=== PATIENT | female | born 1965 | race Caucasian/White ===

== ENCOUNTER 2017-06-15 13:26 | Outpatient (CLI) | payer BC | END 2017-06-15 13:27 | disposition home or self-care (01) | LOC: BICRAD 13:26 | PROVIDERS: ATTEND Family Medicine | DX: J45.909 Unspecified asthma, uncomplicated (principal) | CPT/HCPCS: 71046 ==

== ENCOUNTER 2017-07-26 09:20 | Emergency (ER) | payer BC ==
[2017-07-26] MEDS ORDERED: Famotidine 20 MG TAB ONE (11:10)
== END 2017-07-26 12:13 | disposition home or self-care (01) ==
LOC: ERS 09:20
DX: T78.40XA Allergy, unspecified, initial encounter (principal); I10 Essential (primary) hypertension; E66.9 Obesity, unspecified; F41.9 Anxiety disorder, unspecified; F32.9 Major depressive disorder, single episode, unspecified; Z79.899 Other long term (current) drug therapy
CPT/HCPCS: 99284

== ENCOUNTER 2017-12-12 15:19 | Emergency (ER) | payer BC ==
[~2017-12-12 15:19] MED LIST: Iopamidol 370 76% 50 ML VIAL FS ONE
[2017-12-12 16:11] LABS: #Eosinphils 2.4 thou/uL (0.0-0.7); #Lymphocytes 2.5 thou/uL (1.20-3.40); #Neutrophils 7.5 thou/uL (1.40-6.50); %Basophils 0.3 % (0.0-1.0); %Eosinophils 18.2 % (0.0-10.0); %Lymphocytes 18.4 % (21.0-51.0); %Monocytes 7.1 % (0.0-10.0); Hemoglobin 15.6 g/dL (12.0-16.0); Mean Corpuscular HGB CONC 34.9 g/dL (32.0-36.0); Mean Corpuscular Hemoglobin 34.4 pg (27.0-31.0); Mean Corpuscular Volume 98.6 fL (78.0-98.0); Platelet Count 237 thou/uL (130-400); RBC Distribution Width 12.5 % (11.5-14.5); Red Blood Cell (RBC) Count 4.53 mill/uL (4.20-5.40); White Blood Cell (WBC) Count 13.3 thou/uL (4.8-10.8)
[2017-12-12 16:31] LABS: ALT (SGPT) 27 U/L (8-55); AST (SGOT) 26 U/L (5-34); Albumin 4.5 g/dL (3.5-5.0); Alkaline Phosphatase 162 U/L (40-150); Anion Gap 18 mmol/L (10-20); BUN (Urea Nitrogen) 21 mg/dL (9.8-20.1); Bilirubin, Total 0.3 mg/dL (0.2-1.2); Calc. Creatinine Clearance 0 mL/min (70-130); Calcium 9.6 mg/dL (7.8-10.44); Carbon Dioxide 19 mmol/L (22-29); Chloride 101 mmol/L (98-107); Estimated GFR-MDRD 28; Globulin 3.1 g/dL (2.4-3.5); Glucose 103 mg/dL (70-105); Potassium 3.4 mmol/L (3.5-5.1); Protein, Total 7.6 g/dL (6.0-8.3); Sodium 135 mmol/L (136-145)
[2017-12-12 18:19] LABS: Bilirubin Large (Negative); Blood, Urine Negative (Negative); Clarity TURBID (Clear); Glucose, Urine (Dipstick) Negative (Negative); Leukocyte Small (Negative); Nitrite Negative (Negative); Protein, Urine (Dipstick) 30 mg/dL (Neg-Trace); Specific Gravity, Urine 1.029 (1.002-1.036)
[2017-12-12 18:21] LABS: Pathc Cast-AUWi Flag 1.45 (0-2.49); Squamous Epithelial 21-50 HPF (0-3)
[2017-12-12 18:21] LABS: Magnesium 2.1 mg/dL (1.6-2.6)
[2017-12-12 18:38] LABS: Bacteria/HPF 1+ HPF (None Seen); Hyaline Casts/LPF 0-3 HYALINE CAST LPF (0-3 Hyaline); RBC/HPF None Seen HPF (0-3); Renal Epithelial None Seen HPF (0-3); Transitional Epithelial NONE SEEN HPF (0-3)
--- NOTE | 2017-12-12 20:49 | CT ---
CT ABDOMEN AND PELVIS WITHOUT IV CONTRAST: HISTORY: A 52-year-old female with abdominal pain. COMPARISON: Prior CTA of the abdomen and pelvis dated 08/17/2016. FINDINGS: The lung bases are clear. There is post surgical change of gastroplasty. The gallbladder is surgica lly absent. There is a slightly hypodense 1.7 cm lesion within segment 6 of the right hepatic lobe that is incomp letely characterized. This is seen as an enhancing lesion from the comparison in 2017. There is a s table small right renal cyst. There is bilateral nephrolithiasis. No ureteral calculus or hydroneph rosis is demonstrated. The bladder, rectum, and perirectal soft tissues are unremarkable. There is scattered diverticula involving the colon without evidence of active diverticulitis. There are fluid levels present within the ascending colon, transverse colon, and splenic flexure, which are nonspeci fic. The uterus and adnexa are surgically absent. No definite acute osseous abnormality is evident. There is scattered degenerative and osteoarthritic change. IMPRESSION: 1. Fluid density in the colon can be seen with diarrheal states and/or mild colitis. 2. Hyperdense lesion involving the right hepatic lobe. This was an arterially enhancing lesion seen on the CT examination from 2017. Recommendations per the 2017 results from [place]. An MRI of the ab domen, utilizing hemangioma protocol, is recommended. 3. Stable bilateral nephrolithiasis and right renal cyst. 4. Other chronic findings as above. POS: [facility]
== END 2017-12-12 20:22 | disposition home or self-care (01) ==
LOC: ERS 15:19
DX: K52.9 Noninfective gastroenteritis and colitis, unspecified (principal); I10 Essential (primary) hypertension; F32.9 Major depressive disorder, single episode, unspecified; Z79.899 Other long term (current) drug therapy
CPT/HCPCS: 36415; 74176; 80053; 81003; 81015; 83690; 83735; 85025; 87324; 87449; 96361; 96374; 96375

== ENCOUNTER 2017-12-14 10:20 | Inpatient (IN) | payer BC ==
[2017-12-14] MEDS ORDERED: Lorazepam 2 MG/ML VIAL ONE (10:54)
[2017-12-14 10:57] LABS: Bilirubin Small (Negative); Blood, Urine Negative (Negative); Clarity CLOUDY (Clear); Glucose, Urine (Dipstick) Negative (Negative); Leukocyte Small (Negative); Nitrite Negative (Negative); Protein, Urine (Dipstick) Negative (Neg-Trace); Specific Gravity, Urine 1.025 (1.002-1.036); Urobilinogen 0.2 mg/dL (0.2-1.0)
[2017-12-14 11:01] LABS: Bacteria/HPF 1+ HPF (None Seen); Hyaline Casts/LPF 4-6 HYALINE CAST LPF (0-3 Hyaline); Pathc Cast-AUWi Flag 1.16 (0-2.49); RBC/HPF 0-3 HPF (0-3); Squamous Epithelial 21-50 HPF (0-3); WBC/HPF 0-3 HPF (0-3)
[2017-12-14 11:08] LABS: Hemoglobin 14.7 g/dL (12.0-16.0); Mean Corpuscular HGB CONC 34.2 g/dL (32.0-36.0); Mean Corpuscular Hemoglobin 33.8 pg (27.0-31.0); Mean Corpuscular Volume 98.9 fL (78.0-98.0); Mean Platelet Volume 8.2 fL (7.4-10.4); Platelet Count 216 thou/uL (130-400); RBC Distribution Width 12.3 % (11.5-14.5); Red Blood Cell (RBC) Count 4.33 mill/uL (4.20-5.40); White Blood Cell (WBC) Count 14.8 thou/uL (4.8-10.8)
[2017-12-14] MEDS ORDERED: Ondansetron ODT 4 MG TAB ONE (11:09)
[2017-12-14 11:12] LABS: ALT (SGPT) 22 U/L (8-55); AST (SGOT) 19 U/L (5-34); Albumin 4.5 g/dL (3.5-5.0); Alkaline Phosphatase 167 U/L (40-150); Anion Gap 14 mmol/L (10-20); BUN (Urea Nitrogen) 11 mg/dL (9.8-20.1); Bilirubin, Total 0.3 mg/dL (0.2-1.2); Calc. Creatinine Clearance 0 mL/min (70-130); Calcium 9.8 mg/dL (7.8-10.44); Carbon Dioxide 23 mmol/L (22-29); Chloride 104 mmol/L (98-107); Estimated GFR-MDRD 61; Globulin 2.9 g/dL (2.4-3.5); Glucose 105 mg/dL (70-105); Lipase 15 U/L (8-78); Potassium 3.6 mmol/L (3.5-5.1); Protein, Total 7.4 g/dL (6.0-8.3); Sodium 137 mmol/L (136-145)
[2017-12-14 11:22] LABS: Band 4 % (5-11); Eosinophils 27 % (0-10); Lymphocytes 16 % (21-51); MDiff Complete? YES; Monocytes 4 % (0-10); Neutrophil 42 % (42-75); RBC Morphology Normal; Reactive Lymphocytes 7 % (0-10)
--- NOTE | 2017-12-14 12:07 | CT ---
CT ABDOMEN WITH CONTRAST CT PELVIS WITH CONTRAST: DATE: 12/14/17 HISTORY: 52-year-old female with severe abdominal pain. Diarrhea. COMPARISON: 12/12/17. TECHNIQUE: IV injection of iodinated contrast media: Administered. Oral contrast media: Not administered. FINDINGS: 3 mm calculus at right renal lower pole calyx. 1 or 2 mm punctate calculus at left renal mid-lower po le. Otherwise, normal kidneys. The 1.7 cm mildly hyperdense lesion in hepatic segment 6 of right lobe of the liver on the noncontrast scan of 12/12/17 is not visible on this single phase contrast enhanc ed CT. Hepatic attenuation is minimally decreased diffusely, suggestive of mildly fatty liver. No por rowena vein thrombosis. Cholecystectomy clips in the gallbladder fossa. No discrete hepatic lesion ident ified. Suture line around narrowed gastric channel. A portion of the stomach, including the suture li ne, herniates superior to the diaphragm, a distance of approximately 5 cm, similar to previous CT. Shital ng bases are grossly clear. The abdominal aorta, appendix, adrenals, pancreas, and spleen are normal. No ascites or pneumoperitoneum. No colonic diverticulitis. No small bowel dilation. Absent uterus. IMPRESSION: 1. Mild bilateral nephrolithiasis. 2. Probable mild hepatic steatosis. 3. Status post cholecystectomy, vertical sleeve gastrectomy, and hysterectomy. 4. Small lesion in right lobe of liver demonstrated on the CT of 12/12/17 is not visible on the curr ent CT, due to this particular lesion's enhancement pattern during this particular phase of scanning. As previously recommended, multiphase MRI of the abdomen, with and without contrast, hemangioma prot ocol, is still recommended. 5. Small hiatal hernia. 6. Otherwise no acute findings. JNR POS: [facility]
[2017-12-14] MEDS ORDERED: ISOVUE-370 76%-LOCM 1 ML ONE (15:12)
[2017-12-14 15:30] VITALS: BMI 46.3
[2017-12-14] MEDS ORDERED: Ondansetron ODT 4 MG TAB SL PRN (15:48)
[2017-12-14] MEDS ORDERED: Ondansetron HCl/PF 4 MG/2 ML Vial IVP PRN (15:48)
[2017-12-14] MEDS ORDERED: Sodium Chloride 0.9% 1,000 ML IV SCH ×2 (16:00→16:43)
[2017-12-14 16:04] LABS: Lactic Acid 0.8 mmol/L (0.5-2.2)
[2017-12-14] MEDS ORDERED: Morphine 4 MG/ML Carpuject SLOW IVP PRN (16:43)
--- NOTE | 2017-12-14 20:05 | CON ---
DATE OF CONSULTATION: 12/14/2017 CHIEF COMPLAINT: Abdominal pain. HISTORY OF PRESENT ILLNESS: This is a 52-year-old female who presents with severe abdominal pain in the periumbilical area. This was associated with diarrhea since last Tuesday. She was placed on anti biotics at that time by her primary care physician. Pain is worse, associated with nausea. The diar woody is not improved. She presents after being admitted through the emergency room to the medical service. She has a histo ry of laparoscopic gastric sleeve in 2012. She followed up with me for the first year, has not seen me since. She denies chronic nausea, vomiting, diarrhea. She denies chronic abdominal pain, no hist ory of acid reflux, currently or in the past. PAST MEDICAL HISTORY: Hypertension, migraines. PAST SURGICAL HISTORY: Gastric sleeve, tonsillectomy, tubal ligation. MEDICINES TAKEN DAILY: See list. SOCIAL HISTORY: Occasional alcohol. No smoking, other drugs. REVIEW OF SYSTEMS: Ten system review of systems otherwise negative unless described above. PHYSICAL EXAMINATION: VITAL SIGNS: Blood pressure is 118/77, pulse 81, respirations 20. She is afebrile. HEENT: Sclerae are anicteric. Oropharynx clear. NECK: No lymphadenopathy. CHEST: Clear. HEART: Regular rate and rhythm. ABDOMEN: Soft, it is tender, mildly in the epigastric area without guarding or rebound. No abdomina l hernias. EXTREMITIES: No ischemia or edema to extremities. LABORATORY AND X-RAY FINDINGS: Liver function tests normal except for alkaline phosphatase which is elevated at 167. Her lipase is normal. Her hemoglobin is 14. Her platelet count is 216. She has 4 bands. She has a high eosinophil count. CT scan of the abdomen performed today shows no significan t acute findings. ASSESSMENT: 1. Diarrheal illness of uncertain etiology. 2. Small recurrent hiatal hernia. PLAN: Her hiatal hernia is not causing her any symptoms. She does not have reflux. I question whet her this is some infectious source of diarrhea. No significant colitis on the CT, but no oral contra st was given either. Supportive care. Dr. Nicole has agreed to see her for his thoughts. No plans for surgery for now.
[2017-12-14] MEDS: D5 0.9% NS w/ 20 mEq KCl 1,000 ML IV SCH (20:51)
[2017-12-14] MEDS: Famotidine/PF 20 mg/2ml Vial SLOW IVP SCH (20:51)
[2017-12-14] MEDS: metroNIDAZOLE 500 MG TAB PO SCH (20:52)
[2017-12-14] MEDS: Ondansetron HCl/PF 4 MG/2 ML Vial IVP PRN (21:02)
[2017-12-14] MEDS: Acetaminophen 325 MG TAB PO PRN (21:33)
--- NOTE | 2017-12-15 03:23 | CON ---
DATE OF CONSULTATION: 12/14/2017 REASON FOR CONSULTATION: Diarrhea for over a week. HISTORY OF PRESENT ILLNESS: Ms. Ansari is a pleasant 52-year-old who states she began to have dave rrhea a week ago on Tuesday. By Tuesday, she was not getting better, so she went to go to see Dr. Devon terrell who started empirically on some Bactrim and give her some Levsin for cramping. Over the week d, she did not really get much better, was not worse, but on Tuesday, she is having bowel movements ab out every 30-45 minutes with severe cramping. On Tuesday, she felt weak, throw up once, then a presy ncopal episode, went to the emergency room. There, her white count 13,000, hemoglobin 15.6, platelet count 263. Sodium 135, potassium 3.4, BUN and creatinine 21 and 1.91, alkaline phosphatase is 162. Other liver enzymes are normal. She has stool for C. diff that was negative. She was released home with some different medications. Reviewing those records, it seems that she was given Carafate, Fla gyl, and some Zofran after be given fluids. She also had a CAT scan in the emergency room on the that showed some fluid in the colon, lesion in the liver, which has been seen also in 2017, also cher e kidney stones. This patient was not getting better with that. She tried to go to work today. Abo ut 9:45, she does have some nausea and vomiting when came back to the emergency room. She was rescan elvia the stomach, contrast showed some fatty liver. Sleeve gastrectomy, hysterectomy, cholecystectomy . No other acute findings. I reviewed those films. PAST MEDICAL HISTORY: She has diabetes, she has some reflux, hypertension. PAST SURGICAL HISTORY: Notable for sleeve gastrectomy, several years ago. She had a screening colon oscopy and EGD with Dr. Bravo in 2016, tonsillectomy, tubal ligation, and hysterectomy. ALLERGIES: None known. SOCIAL HISTORY: The patient drinks a couple of drinks per day. Does not use drugs, does not smoke. She has not been drinking any alcohol recently. MEDICATIONS: Valsartan, [place] Thyroid, bupropion, Carafate, Flagyl, Zofran. She is on Bactrim rece ntly. Now, she is admitted to the hospital for further treatment. REVIEW OF SYSTEMS: No dysphagia, odynophagia, melena, hematochezia, hematemesis. She states she has had no evidence of GI problems in the past on a regular basis. She does note that she ate a bagged salad that Tuesday where she has got sick and got sick immediately after that stools have been for the most part watery without blood. There has been some cramping and lot of gas. She has had previous celiac testing in 2016 with tissue transglutaminase, total IgA both of which were negative. PRESENT MEDICATIONS: Here, Tylenol, Pepcid, morphine, Zofran, and normal saline. PHYSICAL EXAMINATION: VITAL SIGNS: Temperature is 97.9, pulse 81, blood pressure 118/77. GENERAL: She is resting comfortably in bed. She has in no distress. HEENT: Oropharynx without lesions. NECK: Supple without adenopathy. LUNGS: Clear. HEART: Rate and rhythm regular without murmurs, rubs or gallops. ABDOMEN: Soft with mild tenderness. There is no rebound. There is no guarding. Bowel sounds are p ositive. There is no rash. EXTREMITIES: No clubbing, cyanosis, or edema. LABORATORY AND X-RAY FINDINGS: As per HPI, white count today 14.8, hemoglobin 14.7, platelet count 2 16, 27% eosinophils on manual diff, neutrophils 42%. Urine has trace ketones. Electrolytes normal w ith BUN and creatinine 11 and 0.97, alkaline phosphatase 167. AST, ALT normal, lipase normal. ASSESSMENT: Ms. Ansari is a 52-year-old female with gastroenteritis, which started about 10 days ago, started after eating bagged salad. She thinks no else got sick at home. She is on no antibioti cs. She was given some Bactrim about 6 days ago that did not help. She was given some Flagyl in the ER yesterday, but she really did not take much of that. She had a stool that was negative for Clost ridium difficile. She does have significantly eosinophilia. Differential diagnosis include parasite s suggests Giardia, Cyclospora, Cryptosporidium. Rotavirus is always possible one would not expect e osinophils having a drug reaction. She has had no other medicines, there is no rashes and this was to the Bactrim. Unfortunately, CBC from 6th does show a little bit elevated eosinophils, but th ere is no manual differential done. RECOMMENDATIONS: I will start some Cipro and Flagyl along first get some stool studies. We will nee d to repeat C. diff that has been negative. We will follow along with you. Would recommend clear li quid diet at this time and hydration, as she is not get better for a couple of days, we can empirical ly treat her for Cyclospora that is going to take about a week to get that result back.
[2017-12-15] MEDS: D5 0.9% NS w/ 20 mEq KCl 1,000 ML IV SCH ×3 (04:00→20:02)
[2017-12-15 06:18] LABS: ALT (SGPT) 18 U/L (8-55); AST (SGOT) 15 U/L (5-34); Albumin 3.7 g/dL (3.5-5.0); Alkaline Phosphatase 137 U/L (40-150); Anion Gap 11 mmol/L (10-20); BUN (Urea Nitrogen) 8 mg/dL (9.8-20.1); Bilirubin, Total 0.2 mg/dL (0.2-1.2); Calc. Creatinine Clearance 156 mL/min (70-130); Calcium 8.4 mg/dL (7.8-10.44); Carbon Dioxide 25 mmol/L (22-29); Chloride 109 mmol/L (98-107); Estimated GFR-MDRD 81; Globulin 2.3 g/dL (2.4-3.5); Glucose 113 mg/dL (70-105); Potassium 3.8 mmol/L (3.5-5.1); Sodium 141 mmol/L (136-145)
[2017-12-15 06:53] LABS: Band 2 % (5-11); Eosinophils 36 % (0-10); Hemoglobin 13.2 g/dL (12.0-16.0); Lymphocytes 24 % (21-51); MDiff Complete? YES; Mean Corpuscular Hemoglobin 35.3 pg (27.0-31.0); Mean Platelet Volume 8.6 fL (7.4-10.4); Monocytes 3 % (0-10); Neutrophil 35 % (42-75); PLT Morphology Comment Appears Adequate; Platelet Count 147 thou/uL (130-400); RBC Distribution Width 12.4 % (11.5-14.5); Red Blood Cell (RBC) Count 3.74 mill/uL (4.20-5.40); White Blood Cell (WBC) Count 12.5 thou/uL (4.8-10.8)
[2017-12-15] MEDS: Acetaminophen 325 MG TAB PO PRN (07:05)
[2017-12-15] MEDS: metroNIDAZOLE 500 MG TAB PO SCH ×3 (07:50→21:02)
[2017-12-15] MEDS: Famotidine/PF 20 mg/2ml Vial SLOW IVP SCH (07:51)
[2017-12-15] MEDS: Ondansetron HCl/PF 4 MG/2 ML Vial IVP PRN ×3 (07:55→21:20)
[2017-12-15] MEDS: Ondansetron ODT 4 MG TAB PO PRN ×2 (10:12→16:08)
--- NOTE | 2017-12-15 13:44 | PDOC.PN ---
- Subjective Encounter Start Date: 12/15/17 Encounter Start Time: 11:15 Still with abdominal pain. seen by Dr Nicole last evening, Cipro and flagyl started, clear diet, stool studies, and possible colonoscopy today. Dr Bravo to see today as he did her endoscopy a year ago No F/c, +N/V, + diarrhea. no bleeding all systems reviewed and neg for all except as above - Objective Resuscitation Status: Resuscitation Status FULL:Full Resuscitation MAR Reviewed: Yes Vital Signs & Weight: Vital Signs (12 hours) Temp Pulse Resp BP Pulse Ox 12/15/17 08:05 98.1 F 80 16 12/15/17 07:32 98.1 F 80 16 116/74 97 12/15/17 05:15 98.3 F 82 18 123/63 99 Weight Weight 245 lb I&O: 12/14/17 12/15/17 12/16/17 06:59 06:59 06:59 Intake Total 1600 Balance 1600 Result Diagrams: 12/15/17 05:15 12/15/17 05:15 Radiology Reviewed by me: Yes Phys Exam - Physical Examination Constitutional: NAD HEENT: PERRLA, moist MMs, sclera anicteric, oral pharynx no lesions Neck: no nodes, no JVD, supple, full ROM Respiratory: no wheezing, no rales, no rhonchi, clear to auscultation bilateral Cardiovascular: RRR, no significant murmur Gastrointestinal: soft, no distention, positive bowel sounds slightly tender, no rebound, no guarding Musculoskeletal: no edema, pulses present Neurological: non-focal, normal sensation, moves all 4 limbs Lymphatic: no nodes Psychiatric: normal affect, A&O x 3 Skin: no rash, normal turgor, cap refill <2 seconds Dx/Plan (1) Colitis Code(s): K52.9 - NONINFECTIVE GASTROENTERITIS AND COLITIS, UNSPECIFIED Status : Acute (2) Abdominal pain Code(s): R10.9 - UNSPECIFIED ABDOMINAL PAIN Status: Acute (3) Hiatal hernia Code(s): K44.9 - DIAPHRAGMATIC HERNIA WITHOUT OBSTRUCTION OR GANGRENE Status: Chronic (4) Dyslipidemia Code(s): E78.5 - HYPERLIPIDEMIA, UNSPECIFIED Status: Chronic (5) History of anxiety Code(s): Z86.59 - PERSONAL HISTORY OF OTHER MENTAL AND BEHAVIORAL DISORDERS Status: Chronic (6) History of depression Code(s): Z86.59 - PERSONAL HISTORY OF OTHER MENTAL AND BEHAVIORAL DISORDERS Status: Chronic (7) HTN (hypertension) Code(s): I10 - ESSENTIAL (PRIMARY) HYPERTENSION Status: Chronic Qualifiers: Hypertension type: essential hypertension Qualified Code(s): I10 - Essential (primary) hypertension (8) Morbid obesity Code(s): E66.01 - MORBID (SEVERE) OBESITY DUE TO EXCESS CALORIES Status: Chronic - Plan cont current plan of care, plan discussed w/ family, continue antibiotics, out of bed/ambulate * .
--- NOTE | 2017-12-15 14:34 | PRG ---
DATE OF SERVICE: 12/15/2017 SUBJECTIVE: Ms. Ansari says she feels about the same today as yesterday. She has some generalize d abdominal pain, which is moderate in severity. She has been tolerating her clear liquid diet, but she has already had 5 loose bowel movements today. She has been afebrile. OBJECTIVE: VITAL SIGNS: Temperature 98.1, pulse 80, blood pressure 116/64, 97% oxygen saturation on room air. GENERAL: No acute distress. HEART: Regular rate and rhythm. LUNGS: Clear to auscultation bilaterally. ABDOMEN: Bowel sounds are present, soft, some diffuse tenderness to palpation throughout, but no gua rding or rebound tenderness. EXTREMITIES: No peripheral edema. LABORATORY STUDIES: WBC is down to 12.5, hemoglobin 13.2, platelets 147. Sodium 141, potassium 3.8, BUN 8, creatinine 0.75, lipase normal at 10. LFTs all normal with total bilirubin 0.2, alkaline gerardo sphatase 137, AST 15, ALT 18. Stool assays for Campylobacter and Shiga toxin are negative. Stool cu lture shows normal enteric natacha, but further incubation is in process. Rotavirus is negative. Rapi d parasite screen including Giardia and cryptosporidium is negative. Cyclospora, norovirus and O&P a re all pending. Note that prior sample from 12/12/2017 showed negative C. difficile antigen and toxi n. ASSESSMENT AND PLAN: 1. Acute gastroenteritis, symptoms from the past 10-11 days. 2. Generalized abdominal pain. My impression remains consistent with an acute gastroenteritis. Channing e of the stool studies are still pending. I advised the patient that even if stool studies end up be ing unrevealing, clinically this appears to represent. Agree with the empiric antibiotics and clear liquid diet for now. If the patient is feeling any better tomorrow morning, diet could be advanced t o full liquids and see how she does. We would expect gradual symptom improvement over the next few d ays. No plan for any endoscopic examination at this time. Please call any time with questions or concerns.
--- NOTE | 2017-12-15 14:39 | HP ---
DATE OF ADMISSION: 12/14/2017 PRIMARY CARE PHYSICIAN: Rosie Manuel M.D. PRIMARY SURGEON: Dr. Orlando Rodriguez. TIME OF SERVICE: 1600. CHIEF COMPLAINT: Abdominal pain and diarrhea. HISTORY OF PRESENT ILLNESS: Ms. Ansari is a 52-year-old female with a history of vertical sleeve gastrectomy some [address] Rodriguez, hysterectomy, and gallbladder removal who has had 7 days of diarrhea prior to presentation. Today, she woke up around 0300 with abdominal pain and passing s ome "slimy gas." She continued to have excruciating abdominal pain and has been intractable. She pr esented to the emergency department for evaluation and the workup was largely unremarkable. CT scan today was unchanged. We were subsequently called for admission. I did not accept the patient, recom mended a touch base with Dr. Rodriguez. Nevertheless, the patient was admitted to my service and showe d up on the floor 4 hours later. The patient continues to have excruciating abdominal pain, said it is worse when letting go and not p ressing, it is constant in nature. No fevers or chills. She did state she ate some funny tasting sa lad about a week ago. No other current complaints. PAST MEDICAL HISTORY: 1. Hypertension, essential. 2. Obesity. 3. Status post gastric sleeve. 4. Anxiety and depression. PAST SURGICAL HISTORY: 1. Includes gastric sleeve about 5 years ago. 2. Cholecystectomy. 3. Hysterectomy. 4. Tonsillectomy. 5. Bilateral tubal ligation remotely. SOCIAL HISTORY: Significant for daily wine consumption. No IV drug use and no tobacco history. REVIEW OF SYSTEMS: All systems reviewed and negative except as per HPI. PHYSICAL EXAMINATION: VITAL SIGNS: Temperature on arrival to floor 97.9, pulse 81, blood pressure 118/77, respiratory rate 20, O2 sat 98% on room air. GENERAL: She is awake. She is alert. She is oriented x3. She is a well-developed, well-nourished, obese white female, appears to be in no acute distress, but looks like she does not feel well. HEENT: Normocephalic, atraumatic. Pupils equal, round, react to light bilaterally. Mucous membrane s moist. No visible lesion. No thrush. NECK: Supple. She has no lymphadenopathy, JVD, or thyromegaly. He has normal carotid upstroke. I do not appreciate bruits. LUNGS: Clear to auscultation bilaterally. CARDIOVASCULAR: Normal S1 and S2. No S3 or S4. No audible murmurs. ABDOMEN: Soft. It is diffusely tender, but mainly in the epigastric area. She has a slight rebound . There is no rigidity, no guarding. She has hypoactive bowel sounds present in all 4 quadrants. S he has no ecchymosis or skin discoloration. EXTREMITIES: No cyanosis or clubbing. Trace pedal edema. Skin is warm, moist, and well perfused. She had no rashes or lesions. She has 2+ dorsalis pedis and posterior tibial pulses. MUSCULOSKELETAL: Normal to inspection. Large joints appear normal. There is no evidence of inflamm ation or palpable effusions. NEUROLOGIC: Cranial nerves II-XII grossly intact. She has no focal neurologic deficits. LABORATORY DATA: White blood cell count 14.8, hemoglobin 14.7, hematocrit of 42.8, and platelet coun t is 216,000. She has 4% bands and 42% lymphocytes. She has 27% eosinophilia. CMP is a normal limi t except for an alkaline phosphatase barely elevated at 167. Lactic acid was initially 2.2 with a re peat of 0.8 and lipase was normal. Urinalysis was grossly contaminated with 21-50 epithelial cells. RADIOGRAPHIC STUDIES: She had a CT scan of the abdomen and pelvis with comparison 2 days prior. It showed IV contrast, but no oral contrast, showed mild bilateral nephrolithiasis, probable mild hepati c steatosis and status post cholecystectomy grossly gastrectomy and hysterectomy, small lesion in the right lobe of the liver, seen 2 days ago, is not present today. I recommended a multiphase MRI when able to get a better look for hemangioma protocol. Patient also had a small hiatal hernia. No othe r acute findings. ASSESSMENT AND PLAN: 1. Abdominal pain. 2. Diarrhea times a week. 3. Eosinophilia. 4. Obesity, status post gastric sleeve remotely with hiatal hernia. We will place patient on n.p.o. status. We will use IV pain medicines and not antiemetics. We will ask GI to evaluate and notify Dr. Rodriguez of admission. Certainly could be an infectious colitis. W e will hold off on antibiotics until GI had the opportunity to see. I will not order any further sto ol studies. Place the patient in inpatient status and started IV fluids at 125 an hour.
[2017-12-15] MEDS: Famotidine 20 MG TAB PO SCH (20:03)
[2017-12-15] MEDS ORDERED: Promethazine HCl 25 MG in Sodium Chloride 0.9% 50 ML IVPB SCH (23:15)
[2017-12-16] MEDS: D5 0.9% NS w/ 20 mEq KCl 1,000 ML IV SCH ×3 (01:30→20:35)
[2017-12-16 05:09] LABS: ALT (SGPT) 14 U/L (8-55); AST (SGOT) 13 U/L (5-34); Albumin 3.4 g/dL (3.5-5.0); Alkaline Phosphatase 113 U/L (40-150); Anion Gap 7 mmol/L (10-20); BUN (Urea Nitrogen) 5 mg/dL (9.8-20.1); Bilirubin, Total Less than 0.2 mg/dL (0.2-1.2); Calc. Creatinine Clearance 174 mL/min (70-130); Calcium 8.3 mg/dL (7.8-10.44); Carbon Dioxide 26 mmol/L (22-29); Chloride 113 mmol/L (98-107); Estimated GFR-MDRD Greater than 90; Globulin 2.1 g/dL (2.4-3.5); Glucose 116 mg/dL (70-105); Magnesium 1.6 mg/dL (1.6-2.6); Protein, Total 5.5 g/dL (6.0-8.3); Sodium 142 mmol/L (136-145)
[2017-12-16 06:07] LABS: Band 1 % (5-11); Hemoglobin 12.1 g/dL (12.0-16.0); Hypochromia SLIGHT = 6-15 cells (100X) (0-5/hpf); Lymphocytes 32 % (21-51); MDiff Complete? YES; Mean Corpuscular HGB CONC 34.1 g/dL (32.0-36.0); Mean Corpuscular Hemoglobin 34.3 pg (27.0-31.0); Mean Platelet Volume 8.6 fL (7.4-10.4); Monocytes 3 % (0-10); Neutrophil 64 % (42-75); PLT Morphology Comment Appears Adequate; Platelet Count 140 thou/uL (130-400); RBC Distribution Width 12.3 % (11.5-14.5); Red Blood Cell (RBC) Count 3.51 mill/uL (4.20-5.40); White Blood Cell (WBC) Count 9.5 thou/uL (4.8-10.8)
[2017-12-16] MEDS: metroNIDAZOLE 500 MG TAB PO SCH (09:11)
[2017-12-16] MEDS: Famotidine 20 MG TAB PO SCH ×2 (09:11→20:23)
[2017-12-16] MEDS: Ondansetron HCl/PF 4 MG/2 ML Vial IVP PRN ×2 (10:46→17:28)
--- NOTE | 2017-12-16 10:58 | PDOC.PN ---
- Subjective Encounter Start Date: 12/16/17 Encounter Start Time: 09:20 Pt overall feels better Flagyl makes her vomit. less abd pain, not constant now, only colicky. wants more substantial diet. No F/C, + diarrhea, but better, no CP or sOB All systesm reviewed and neg for all except as above - Objective Resuscitation Status: Resuscitation Status FULL:Full Resuscitation MAR Reviewed: Yes Vital Signs & Weight: Vital Signs (12 hours) Temp Pulse Resp BP Pulse Ox 12/16/17 08:00 98.3 F 76 20 121/83 99 Weight Admit Weight 245 lb Weight 245 lb I&O: 12/15/17 12/16/17 12/17/17 06:59 06:59 06:59 Intake Total 1600 2860 40 Output Total 200 Balance 1600 2660 40 Result Diagrams: 12/16/17 04:04 12/16/17 04:04 Phys Exam - Physical Examination Constitutional: NAD HEENT: PERRLA, moist MMs, sclera anicteric, oral pharynx no lesions Neck: no nodes, no JVD, supple, full ROM Respiratory: no wheezing, no rales, no rhonchi, clear to auscultation bilateral Cardiovascular: RRR, no significant murmur, no rub Gastrointestinal: soft, non-tender, no distention, positive bowel sounds Musculoskeletal: no edema, pulses present Neurological: non-focal, normal sensation, moves all 4 limbs Lymphatic: no nodes Psychiatric: normal affect, A&O x 3 Skin: no rash, normal turgor, cap refill <2 seconds Dx/Plan (1) Colitis Code(s): K52.9 - NONINFECTIVE GASTROENTERITIS AND COLITIS, UNSPECIFIED Status : Acute Comment: likely infective. on levoflox and flagyl. change flagyl to po. add florastor (2) Abdominal pain Code(s): R10.9 - UNSPECIFIED ABDOMINAL PAIN Status: Acute Qualifiers: Abdominal location: epigastric Qualified Code(s): R10.13 - Epigastric pain Comment: improving (3) Hiatal hernia Code(s): K44.9 - DIAPHRAGMATIC HERNIA WITHOUT OBSTRUCTION OR GANGRENE Status: Chronic (4) Dyslipidemia Code(s): E78.5 - HYPERLIPIDEMIA, UNSPECIFIED Status: Chronic (5) History of anxiety Code(s): Z86.59 - PERSONAL HISTORY OF OTHER MENTAL AND BEHAVIORAL DISORDERS Status: Chronic (6) History of depression Code(s): Z86.59 - PERSONAL HISTORY OF OTHER MENTAL AND BEHAVIORAL DISORDERS Status: Chronic (7) HTN (hypertension) Code(s): I10 - ESSENTIAL (PRIMARY) HYPERTENSION Status: Chronic Qualifiers: Hypertension type: essential hypertension Qualified Code(s): I10 - Essential (primary) hypertension (8) Morbid obesity Code(s): E66.01 - MORBID (SEVERE) OBESITY DUE TO EXCESS CALORIES Status: Chronic (9) Eosinophilia Code(s): D72.1 - EOSINOPHILIA Status: Acute Comment: none today, present on admit - Plan cont current plan of care, continue antibiotics, PT/OT, out of bed/ambulate * .
[2017-12-16] MEDS: metroNIDAZOLE 500 MG in Premix Bag 1 BAG IVPB SCH ×3 (12:31→23:03)
--- NOTE | 2017-12-16 13:20 | PRG ---
DATE OF SERVICE: 12/16/2017 SUBJECTIVE: Ms. Ansari says that overall she is feeling better today. The abdominal pain is less severe and less consistent. Diarrhea has also improved. She has had only one runny bowel movement so far today. She does remain nauseated and has not really advanced her diet much. OBJECTIVE: VITAL SIGNS: Temperature 98.3, pulse 76, blood pressure 121/83, 99% oxygen saturation on room air. GENERAL: No acute distress. HEART: Regular rate and rhythm. LUNGS: Clear to auscultation bilaterally. ABDOMEN: Bowel sounds are present, soft, mild diffuse tenderness to palpation, but no guarding or re bound tenderness. EXTREMITIES: No peripheral edema. LABORATORY STUDIES: Sodium 142, potassium 4.0, BUN 5, creatinine 0.67, albumin 3.4. LFTs all normal . WBC down to 9.5, hemoglobin 12.1, platelets 140. Remaining stool studies including cyclosporine s mear, Norovirus PCR and ova and parasites are still pending. ASSESSMENT AND PLAN: 1. Acute gastroenteritis. 2. Generalized abdominal pain, improving. The patient has had some clinical improvement as expected . Agree with advancing diet as tolerated. Continuing antibiotics for now. Please call any time wit h questions or concerns.
[2017-12-16] MEDS: Ondansetron ODT 4 MG TAB PO PRN (20:35)
[2017-12-17] MEDS: Acetaminophen 325 MG TAB PO PRN ×2 (03:37→09:55)
[2017-12-17 05:27] LABS: ALT (SGPT) 13 U/L (8-55); AST (SGOT) 15 U/L (5-34); Albumin 3.3 g/dL (3.5-5.0); Alkaline Phosphatase 101 U/L (40-150); Anion Gap 8 mmol/L (10-20); BUN (Urea Nitrogen) 5 mg/dL (9.8-20.1); Bilirubin, Total 0.2 mg/dL (0.2-1.2); Calc. Creatinine Clearance 172 mL/min (70-130); Calcium 8.1 mg/dL (7.8-10.44); Carbon Dioxide 25 mmol/L (22-29); Chloride 112 mmol/L (98-107); Estimated GFR-MDRD Greater than 90; Glucose 100 mg/dL (70-105); Magnesium 1.6 mg/dL (1.6-2.6); Potassium 4.1 mmol/L (3.5-5.1); Protein, Total 5.3 g/dL (6.0-8.3); Sodium 141 mmol/L (136-145)
[2017-12-17 05:30] LABS: Eosinophils 22 % (0-10); Hemoglobin 12.4 g/dL (12.0-16.0); Lymphocytes 35 % (21-51); MDiff Complete? YES; Mean Corpuscular HGB CONC 33.9 g/dL (32.0-36.0); Mean Corpuscular Hemoglobin 34.1 pg (27.0-31.0); Monocytes 3 % (0-10); Neutrophil 37 % (42-75); PLT Morphology Comment Appears Adequate; Platelet Count 140 thou/uL (130-400); RBC Distribution Width 12.2 % (11.5-14.5); RBC Morphology Normal; Reactive Lymphocytes 2 % (0-10); Red Blood Cell (RBC) Count 3.65 mill/uL (4.20-5.40); White Blood Cell (WBC) Count 8.8 thou/uL (4.8-10.8)
[2017-12-17] MEDS: metroNIDAZOLE 500 MG in Premix Bag 1 BAG IVPB SCH ×4 (05:45→23:19)
[2017-12-17] MEDS: D5 0.9% NS w/ 20 mEq KCl 1,000 ML IV SCH ×3 (05:48→17:41)
[2017-12-17] MEDS: Famotidine 20 MG TAB PO SCH ×2 (08:03→21:19)
[2017-12-17] MEDS: Ondansetron HCl/PF 4 MG/2 ML Vial IVP PRN ×3 (09:51→21:19)
--- NOTE | 2017-12-17 13:53 | PRG ---
DATE OF SERVICE: 12/17/2017 SUBJECTIVE: Ms. Ansari is feeling even better today. She has been tolerating her full liquid t. She had some cream of wheat with a little bit of ongoing nausea, but no vomiting, no significant abdominal pain. She feels her diarrhea is slowing down. She had 8 bowel movements yesterday and 2 s o far today. She has been afebrile. OBJECTIVE: VITAL SIGNS: Temperature 98.4, pulse 75, blood pressure 133/84, 99% oxygen saturation on room air. GENERAL: No acute distress. HEART: Regular rate and rhythm. LUNGS: Clear to auscultation bilaterally. ABDOMEN: Bowel sounds present, soft, some mild diffuse tenderness to palpation, but no guarding or r ebound tenderness. EXTREMITIES: No peripheral edema. LABORATORY STUDIES: Sodium 141, potassium 4.1, BUN 5, creatinine 0.68, WBC 8.8, hemoglobin 12.4, jr telets 140. ASSESSMENT AND PLAN: 1. Acute gastroenteritis. 2. Generalized abdominal pain, improving. 3. Acute diarrhea, improving. I am pleased with her clinical improvement, as expected. I think her diet can be advanced further today. I told her to advance it slowly as tolerated, but no restrictio ns at this point. I think if she is still doing well this evening and able to tolerate her diet, she could potentially be discharged from the hospital this evening or tomorrow morning. We would comple tely stop the antibiotics on hospital discharge. We can have her follow up in the GI Clinic in the n ext couple of weeks with myself or one of our physician assistants. Please call back anytime with questions or concerns.
--- NOTE | 2017-12-17 15:22 | PDOC.PN ---
- Subjective Encounter Start Date: 12/17/17 Encounter Start Time: 09:20 virtually no pain, no N/V, adrianna full liquids No F/C, no D/C since yesteray, no GI bleeding, no CP or SOB All systems reviewed and neg x as above - Objective Resuscitation Status: Resuscitation Status FULL:Full Resuscitation MAR Reviewed: Yes Vital Signs & Weight: Vital Signs (12 hours) Temp Pulse Resp BP BP Pulse Ox 12/17/17 08:00 98.4 F 75 20 133/84 99 12/17/17 05:50 143/81 H Weight Admit Weight 245 lb Weight 245 lb I&O: 12/16/17 12/17/17 12/18/17 06:59 06:59 06:59 Intake Total 2860 910 Output Total 200 Balance 2660 910 Result Diagrams: 12/17/17 04:19 12/17/17 04:19 Phys Exam - Physical Examination Constitutional: NAD HEENT: PERRLA, moist MMs, sclera anicteric, oral pharynx no lesions Neck: no nodes, no JVD, supple, full ROM Respiratory: no wheezing, no rales, no rhonchi, clear to auscultation bilateral Cardiovascular: RRR, no significant murmur, no rub Gastrointestinal: soft, non-tender, no distention, positive bowel sounds Musculoskeletal: no edema, pulses present Neurological: non-focal, normal sensation, moves all 4 limbs Lymphatic: no nodes Psychiatric: normal affect, A&O x 3 Skin: no rash, normal turgor, cap refill <2 seconds Dx/Plan (1) Colitis Code(s): K52.9 - NONINFECTIVE GASTROENTERITIS AND COLITIS, UNSPECIFIED Status : Acute Comment: likely infective. on levoflox and flagyl. change flagyl to po. add florastor (2) Abdominal pain Code(s): R10.9 - UNSPECIFIED ABDOMINAL PAIN Status: Acute Qualifiers: Abdominal location: epigastric Qualified Code(s): R10.13 - Epigastric pain Comment: improving (3) Hiatal hernia Code(s): K44.9 - DIAPHRAGMATIC HERNIA WITHOUT OBSTRUCTION OR GANGRENE Status: Chronic (4) Dyslipidemia Code(s): E78.5 - HYPERLIPIDEMIA, UNSPECIFIED Status: Chronic (5) History of anxiety Code(s): Z86.59 - PERSONAL HISTORY OF OTHER MENTAL AND BEHAVIORAL DISORDERS Status: Chronic (6) History of depression Code(s): Z86.59 - PERSONAL HISTORY OF OTHER MENTAL AND BEHAVIORAL DISORDERS Status: Chronic (7) HTN (hypertension) Code(s): I10 - ESSENTIAL (PRIMARY) HYPERTENSION Status: Chronic Qualifiers: Hypertension type: essential hypertension Qualified Code(s): I10 - Essential (primary) hypertension (8) Morbid obesity Code(s): E66.01 - MORBID (SEVERE) OBESITY DUE TO EXCESS CALORIES Status: Chronic (9) Eosinophilia Code(s): D72.1 - EOSINOPHILIA Status: Resolved Comment: none today, present on admit - Plan cont current plan of care, continue antibiotics, PT/OT, out of bed/ambulate * . advance diet, anticipate d/C in am, per GI no abx
[2017-12-18 00:07] LABS: Norovirus GI Negative (Negative); Norovirus GII Negative (Negative)
[2017-12-18] MEDS: metroNIDAZOLE 500 MG in Premix Bag 1 BAG IVPB SCH ×2 (05:15→12:10)
[2017-12-18] MEDS: D5 0.9% NS w/ 20 mEq KCl 1,000 ML IV SCH (05:15)
[2017-12-18] MEDS: Ondansetron HCl/PF 4 MG/2 ML Vial IVP PRN (08:08)
[2017-12-18] MEDS: Famotidine 20 MG TAB PO SCH (08:09)
[2017-12-18 08:57] VITALS: TEMP 98.3
[2017-12-18] MEDS ORDERED: Fluticasone Propionate Nasal Spray 16 gm Bottle NASAL SCH (11:00)
[2017-12-18] MEDS: Acetaminophen 325 MG TAB PO PRN (12:17)
--- NOTE | 2017-12-18 15:12 | PRG ---
DATE OF SERVICE: 12/18/2017 GI INPATIENT DAILY PROGRESS NOTE SUBJECTIVE: Ms. Ansari is feeling a lot better today. There is no abdominal pain or nausea today . Diarrhea has slowed down and stools are firming up. She was able to tolerate some bland solid t today including cream of wheat, toast, applesauce and even some grilled chicken. She is feeling re marcio to go home. PHYSICAL EXAMINATION: VITAL SIGNS: Temperature 98.3, pulse 76, blood pressure 147/89, 99% oxygen saturation on room air. GENERAL: No acute distress. HEART: Regular rate and rhythm. LUNGS: Clear to auscultation bilaterally. ABDOMEN: Soft and nontender to palpation. EXTREMITIES: No peripheral edema. LABORATORY STUDIES: Stool norovirus came back negative. ASSESSMENT AND PLAN: 1. Acute gastroenteritis. 2. Generalized abdominal pain, improved. 3. Acute diarrhea, improving. The patient has had significant improvement. She is tolerating her diet. From a GI perspective, she could be discharged from the hospital. I advised her to call my office and let us know if symptoms do not continue to improve over the next few days. She should continue with a somewhat bland diet an d slowly advance it as tolerated. I think it would be reasonable for her to take tomorrow off from [facility] given that she has had such a long hospitalization with this illness.
[2017-12-18 17:24] VITALS: BP 145/95
== END 2017-12-18 17:38 | disposition home or self-care (01) | DRG 392 ==
LOC: ERS 10:20 → T4-A 13:33
PROVIDERS: ADMIT Internal Medicine Infectious Disease; ATTEND Internal Medicine Infectious Disease
DX: K52.9 Noninfective gastroenteritis and colitis, unspecified (principal); Z68.42 Body mass index [BMI] 45.0-49.9, adult; R19.7 Diarrhea, unspecified; I10 Essential (primary) hypertension; F41.9 Anxiety disorder, unspecified; F32.9 Major depressive disorder, single episode, unspecified; K44.9 Diaphragmatic hernia without obstruction or gangrene; D72.1 Eosinophilia; E78.5 Hyperlipidemia, unspecified; E66.01 Morbid (severe) obesity due to excess calories; E11.9 Type 2 diabetes mellitus without complications
CPT/HCPCS: 36415; 74177; 80053; 81003; 81015; 83605; 83690; 83735; 85025; 86403; 87015; 87045; 87046; 87177; 87206; 87328; 87329; 87449; 87798; 87899; 96361; 96374; 96375; J1956; J2060; J2270; J2405; J2550; J7050; Q0162; S0028

== ENCOUNTER 2018-01-16 08:56 | Emergency (ER) | payer BC ==
[2018-01-16 09:44] LABS: Bilirubin Negative (Negative); Blood, Urine Negative (Negative); Clarity CLOUDY (Clear); Glucose, Urine (Dipstick) Negative (Negative); Leukocyte Negative (Negative); Nitrite Negative (Negative); Protein, Urine (Dipstick) Negative (Neg-Trace); Specific Gravity, Urine 1.014 (1.002-1.036); Urobilinogen 0.2 mg/dL (0.2-1.0); pH, Urine 7.5 (5.0-9.0)
[2018-01-16 09:47] LABS: #Basophils 0.1 thou/uL (0.0-0.2); #Eosinphils 0.5 thou/uL (0.0-0.7); #Lymphocytes 2.3 thou/uL (1.20-3.40); #Monocytes 0.5 thou/uL (0.11-0.59); #Neutrophils 4.4 thou/uL (1.40-6.50); %Basophils 1.1 % (0.0-1.0); %Eosinophils 6.9 % (0.0-10.0); %Lymphocytes 29.3 % (21.0-51.0); %Monocytes 6.4 % (0.0-10.0); %Neutrophils 56.4 % (42.0-75.0); Hemoglobin 14.4 g/dL (12.0-16.0); Mean Corpuscular HGB CONC 33.9 g/dL (32.0-36.0); Mean Corpuscular Hemoglobin 33.1 pg (27.0-31.0); Mean Corpuscular Volume 97.8 fL (78.0-98.0); Mean Platelet Volume 8.4 fL (7.4-10.4); Platelet Count 208 thou/uL (130-400); RBC Distribution Width 12.1 % (11.5-14.5); Red Blood Cell (RBC) Count 4.35 mill/uL (4.20-5.40); White Blood Cell (WBC) Count 7.9 thou/uL (4.8-10.8)
[2018-01-16 10:04] LABS: ALT (SGPT) 39 U/L (8-55); AST (SGOT) 42 U/L (5-34); Albumin 4.2 g/dL (3.5-5.0); Alkaline Phosphatase 87 U/L (40-150); Anion Gap 15 mmol/L (10-20); BUN (Urea Nitrogen) 14 mg/dL (9.8-20.1); Bilirubin, Total 0.5 mg/dL (0.2-1.2); Calc. Creatinine Clearance 0 mL/min (70-130); Calcium 9.5 mg/dL (7.8-10.44); Carbon Dioxide 25 mmol/L (22-29); Chloride 103 mmol/L (98-107); Estimated GFR-MDRD 80; Globulin 3.2 g/dL (2.4-3.5); Glucose 111 mg/dL (70-105); Lipase 17 U/L (8-78); Potassium 4.3 mmol/L (3.5-5.1); Protein, Total 7.4 g/dL (6.0-8.3); Sodium 139 mmol/L (136-145)
[2018-01-16] MEDS ORDERED: Ondansetron HCl/PF 4 MG/2 ML Vial ONE (10:10)
== END 2018-01-16 14:37 | disposition home or self-care (01) ==
LOC: ERS 08:56
DX: R10.9 Unspecified abdominal pain (principal); I10 Essential (primary) hypertension; E66.9 Obesity, unspecified; F41.9 Anxiety disorder, unspecified; F32.9 Major depressive disorder, single episode, unspecified; Z79.899 Other long term (current) drug therapy
CPT/HCPCS: 80053; 81003; 83690; 85025; 96361; 96374; 96375; J2270; J2405

== ENCOUNTER 2018-05-24 13:28 | Outpatient (CLI) | payer BC ==
--- NOTE | 2018-05-24 14:24 | RAD ---
PA AND LATERAL CHEST: History: Positive TB skin test. FINDINGS: Heart size and mediastinum are within normal limits. The lungs are clear of infiltrates. No evidence of active TB. IMPRESSION: No active intrathoracic disease. No evidence of active TB. POS: [facility]
== END 2018-05-24 13:29 | disposition home or self-care (01) ==
LOC: BICRAD 13:28
PROVIDERS: ATTEND Family Medicine
DX: R76.11 Nonspecific reaction to tuberculin skin test without active tuberculosis (principal)
CPT/HCPCS: 71046

== ENCOUNTER 2018-11-03 13:52 | Outpatient (CLI) | payer BC ==
--- NOTE | 2018-11-03 14:35 | CT ---
EXAM: CT Sinuses WO Con PROVIDED CLINICAL HISTORY: Chronic sinusitis. History of allergies. History of prior sinus surgery. COMPARISON: 08/16/2014 obtained from [facility]. FINDINGS: The paranasal sinuses are clear. No significant mucosal thickening is seen, and no air-fluid levels a re identified. The ostiomeatal units have a normal appearance bilaterally, and each ethmoid infundibulum is patent. There is mild deviation of the nasal septum to the right. The orbits are symmetric and normal in appearance bilaterally. Visualized mastoid air cells are clear. Osseous structures have a normal appearance. There has been no significant interval change compared to the prior exam IMPRESSION: No mucosal thickening or air-fluid levels are seen in the paranasal sinuses.
== END 2018-11-03 13:53 | disposition home or self-care (01) ==
LOC: BICCT 13:52
PROVIDERS: ATTEND Family Medicine
DX: J32.9 Chronic sinusitis, unspecified (principal)

== ENCOUNTER 2019-05-06 06:28 | Observation (INO) | payer BC ==
[2019-05-06 07:09] LABS: #Basophils 0.1 thou/uL (0.0-0.2); #Eosinphils 0.3 thou/uL (0.0-0.7); #Lymphocytes 2.7 thou/uL (1.20-3.40); #Monocytes 0.5 thou/uL (0.11-0.59); #Neutrophils 3.9 thou/uL (1.40-6.50); %Basophils 1.5 % (0.0-1.0); %Lymphocytes 35.9 % (21.0-51.0); %Monocytes 6.4 % (0.0-10.0); %Neutrophils 52.1 % (42.0-75.0); Hemoglobin 12.9 g/dL (12.0-16.0); Mean Corpuscular Hemoglobin 34.3 pg (27.0-31.0); Mean Platelet Volume 7.4 fL (7.4-10.4); Platelet Count 229 thou/uL (130-400); RBC Distribution Width 12.7 % (11.5-14.5); Red Blood Cell (RBC) Count 3.77 mill/uL (4.20-5.40); White Blood Cell (WBC) Count 7.6 thou/uL (4.8-10.8)
[2019-05-06 07:32] LABS: ALT (SGPT) 20 U/L (8-55); AST (SGOT) 19 U/L (5-34); Albumin 4.2 g/dL (3.5-5.0); Alkaline Phosphatase 105 U/L (40-110); Anion Gap 13 mmol/L (10-20); BUN (Urea Nitrogen) 17 mg/dL (9.8-20.1); Bilirubin, Total 0.5 mg/dL (0.2-1.2); Calc. Creatinine Clearance 0 mL/min (70-130); Calcium 9.3 mg/dL (7.8-10.44); Carbon Dioxide 27 mmol/L (22-29); Chloride 104 mmol/L (98-107); Estimated GFR-MDRD 82; Globulin 2.8 g/dL (2.4-3.5); Glucose 93 mg/dL (70-105); Potassium 4.1 mmol/L (3.5-5.1); Sodium 140 mmol/L (136-145)
--- NOTE | 2019-05-06 07:36 | RAD ---
EXAM: Chest 2 views: HISTORY: Left chest pain COMPARISON: 05/24/2018 FINDINGS: There is a normal-sized cardiomediastinal silhouette. There is no evidence of consolidation, mass, or pleural effusion. The bones are unremarkable. IMPRESSION: No evidence of acute cardiopulmonary disease
[2019-05-06] MEDS ORDERED: Nitroglycerin 2% Ointment 1 INCH/1 GM Packet ONE (08:28)
[2019-05-06] MEDS ORDERED: Acetaminophen 500 MG TAB ONE (08:28)
[2019-05-06] MEDS ORDERED: Aspirin Chewable 81 MG TAB ONE (08:28)
--- NOTE | 2019-05-06 10:24 | PDOC.FPRHP ---
- History of Present Illness Chief Complaint: chest pain History of Present Illness: Patient is a 53F with PMHx of HTN, hypothyroidism, anxiety, and depression that presents with chest pain. Patient states that the chest pain began yesterday when she was waking up, and she had slept on the couch overnight. She reports the pain was achy in nature, and sharp at times. It was located at her left lateral chest. She states it went away and then recurred that night while laying in bed, though at that time it was more like chest pressure in the center of her chest. She states that this morning on her way to the ED she experienced chest pain similar to the first episode, and she felt sharp pain radiating down her left arm. She takes nexium for "stomach problems" though denies any history of GERD and states that her stomach pain is different than the chest pain she has been experiencing. Patient has also been under a great amount of stress recently, as her son 2 weeks ago. She reports that she has been coping by keeping busy with family and work. PCP: Mar ED Course: asa, nitro paste, 1000mg tylenol - Allergies/Adverse Reactions Allergies Allergy/AdvReac Type Severity Reaction Status Date / Time adhesive Allergy Rash Verified 08/17/16 23:22 latex Allergy Verified 08/17/16 23:22 - Home Medications Medication Instructions Recorded Confirmed Type Citalopram Hydrobromide 40 mg PO HS 02/16/16 08/17/16 History [Citalopram HBr] Metoprolol Tartrate [Lopressor] 50 mg PO DAILY 02/16/16 08/17/16 History tiZANidine HCl [Tizanidine HCl] 2 mg PO HS 02/16/16 08/17/16 History Pantoprazole [Protonix] 40 mg PO DAILY 08/17/16 08/17/16 History Triamterene/Hydrochlorothiazid 1 tablet PO DAILY 08/17/16 08/17/16 History [Triamterene-Hctz 37.5-25 mg Tb] Aspirin [Ecotrin Regular Strength] 81 mg PO DAILY #30 tab 08/20/16 Rx Atorvastatin Calcium [Lipitor] 40 mg PO HS #30 tab 08/20/16 Rx Ketorolac Tromethamine [Toradol] 10 mg PO Q4H PRN #14 tab 04/14/17 Rx Ondansetron [Zofran ODT] 4 mg PO Q6H PRN #20 tab 12/18/17 Rx - History PMHx: HTN, hypothyroidism, anxiety, depression PSHx: hysterectomy, cholecystectomy, tonsillectomy, tubal ligation, gastric sleeve FHx: no cardiac hx Social: drinks 2x/week; smoked 1 pack/week for 2 years, quit 30 years ago; no drug use - Review of Systems General: denies: fever/chills, weight/appetite/sleep changes Eyes: denies: eye pain, vision changes ENT: denies: nasal congestion, rhinorrhea Respiratory: denies: cough, shortness of breath Cardiovascular: reports: chest pain. denies: edema Gastrointestinal: denies: nausea, vomiting, diarrhea Genitourinary: denies: incontinence, dysuria Skin: denies: rashes, jaundice Musculoskeletal: reports: tenderness (left chest wall is ttp with deep palpation ). denies: swelling Neurological: denies: syncope, seizure Psychological: reports: anxiety, depression - Vital signs BP: [125/65] HR: [83] RR: [15] Tmax: [98.1] Pox: [100]% on [RA] Wt: [104.3kg] - Physical Exam Constitutional: NAD, awake, alert and oriented HEENT: grossly normal vision, grossly normal hearing, MMM Neck: supple, FROM, trachea midline, no LAD Chest: no-tender to palpation, no lesions Heart: RRR, normal S1/S2 Lungs: CTAB, no respiratory distress Abdomen: soft, non-tender Musculoskeletal: normal structure, normal tone, ROM grossly normal, other ( tenderness with deep palpation of L chest wall) Neurological: no focal deficit, normal sensation Skin: no rash/lesions, good turgor Heme/Lymphatic: no unusual bruising or bleeding, no purpura Psychiatric: good judgment and insight, intact recent and remote memory FMR H&P: Results - Labs Result Diagrams: 05/06/19 06:40 05/06/19 06:40 Lab results: WBC 7.6 thou/uL (4.8-10.8) 05/06/19 06:40 Hgb 12.9 g/dL (12.0-16.0) 05/06/19 06:40 Hct 38.1 % (36.0-47.0) 05/06/19 06:40 MCV 101.0 fL (78.0-98.0) H 05/06/19 06:40 Plt Count 229 thou/uL (130-400) 05/06/19 06:40 Neutrophils % 52.1 % (42.0-75.0) 05/06/19 06:40 Sodium 140 mmol/L (136-145) 05/06/19 06:40 Potassium 4.1 mmol/L (3.5-5.1) 05/06/19 06:40 Chloride 104 mmol/L (98-107) 05/06/19 06:40 Carbon Dioxide 27 mmol/L (22-29) 05/06/19 06:40 BUN 17 mg/dL (9.8-20.1) 05/06/19 06:40 Creatinine 0.74 mg/dL (0.6-1.1) 05/06/19 06:40 Glucose 93 mg/dL (70-105) 05/06/19 06:40 Calcium 9.3 mg/dL (7.8-10.44) 05/06/19 06:40 Total Bilirubin 0.5 mg/dL (0.2-1.2) 05/06/19 06:40 AST 19 U/L (5-34) 05/06/19 06:40 ALT 20 U/L (8-55) 05/06/19 06:40 Alkaline Phosphatase 105 U/L (40-110) 05/06/19 06:40 Serum Total Protein 7.0 g/dL (6.0-8.3) 05/06/19 06:40 Albumin 4.2 g/dL (3.5-5.0) 05/06/19 06:40 - EKG Interpretation EKG: NSR - Radiology Interpretation Chest x-ray Status: report reviewed by me (No acute cardiopulmonary changes) FMR H&P: A/P - Problem List (1) Hypothyroid Current Visit: Yes Status: Chronic Code(s): E03.9 - HYPOTHYROIDISM, UNSPECIFIED (2) Chest pain in adult Current Visit: No Status: Acute Code(s): R07.9 - CHEST PAIN, UNSPECIFIED (3) HTN (hypertension) Current Visit: No Status: Chronic Code(s): I10 - ESSENTIAL (PRIMARY) HYPERTENSION Qualifiers: Hypertension type: essential hypertension Qualified Code(s): I10 - Essential (primary) hypertension (4) History of anxiety Current Visit: No Status: Chronic Code(s): Z86.59 - PERSONAL HISTORY OF OTHER MENTAL AND BEHAVIORAL DISORDERS (5) History of depression Current Visit: No Status: Chronic Code(s): Z86.59 - PERSONAL HISTORY OF OTHER MENTAL AND BEHAVIORAL DISORDERS - Plan Patient is a 53F with PMHX of HTN, hypothyroidism, anxiety, and depression that is admitted with atypical chest pain #Atypical Chest Pain -L-sided chest pain, achy/sharp/pressure at times; occurs when patient is at rest and with movement -EKG: NSR -Initial trop neg, continue to trend -CXR: neg -Echo 2017: EF 50-55%, trace tricuspid regurg -nitrostat prn -Heart score of 2, for HTN and age -will treadmill stress in am, and pending stress results will f/u with cardiac echo -NPO at midnight -will risk stratify with TSH, FLP, and A1C in am #HTN -well controlled in ED -continue home meds #Anxiety/Depression -continue home meds -discussed therapy with patient, patient agreeable with pursuing this outpatient DVT ppx: lovenox GI ppx: Home Nexium Dispo: tele obs for atypical chest pain workup, cardiac stress test in am Code: Full PCP: Mar FMRamsey H&P: Upper Level - Plan Date/Time: 05/06/19 1023 ILea, have evaluated this patient and agree with findings/plan as outlined by web marketing intern resident. Pertinent changes/additions are listed here. 53yo F with PMH of HTN presenting with 2 day hx of sharp intermittent CP that worsened this am with radiation down L arm. Denies SOB, n/v, diaphoresis, LE edema, orthopnea, or ROSE. Pain is not present at the time of my exam. Unsure what resolved the CP. Exacerbated by nothing. Pt with significant anxiety, worsened over the last 2 weeks after her son from OD. She reports significant financial, family, and work stress. VS: BP 120/74, P91, R19, T98.1 , O2100% Exam notable for obesity and some ttp along anterior chest but otherwise normal. Heart sounds s1 and s2 normal, without murmur. Labs/Imaging: Troponin negative x1. EKG NSR without ST changes. A/P: 1)Atypical CP- HEART-2, will do treadmill stress test and check A1c, FLP, TSH. Likely related to anxiety. 2)Hypothyroidism- stable per pt. TSH pending. Continue home meds. 3) Hypertension- at goal, continue home meds and monitor. 4) Anxiety- Currently on Wellbutrin, Sertraline, and Temazapam. Continue current meds, and consider increase in Sertraline as well as outpatient psychotherapy. Dispo: LOS < 48h Code Status: Full
[2019-05-06] MEDS ORDERED: Ondansetron ODT 4 MG TAB PO PRN (10:35)
[2019-05-06] MEDS ORDERED: Nitroglycerin 0.4 MG TAB (25 Tab Bottle) PO PRN (10:35)
[2019-05-06 11:35] LABS: Troponin I Less than 0.010 ng/mL (< 0.028)
[2019-05-06 13:40] VITALS: BMI 45.3
[2019-05-06] MEDS ORDERED: Temazepam 15 MG CAP PO PRN ×2 (13:41→17:14)
[2019-05-06] MEDS: Acetaminophen 325 MG TAB PO PRN ×3 (14:17→23:24)
[2019-05-07] MEDS: Acetaminophen 325 MG TAB PO PRN (04:53)
--- NOTE | 2019-05-07 05:11 | PDOC.FM ---
- Subjective Subjective: Patient doing well this am, reported some chest pain again on the left when falling asleep last night. Denies any cp or sob this morning. - Objective Vital Signs & Weight: Vital Signs (12 hours) Temp Pulse Resp BP BP Pulse Ox 05/07/19 04:45 98.3 F 72 18 165/80 H 97 05/06/19 23:35 88 16 120/55 L 05/06/19 23:05 97.8 F 81 18 141/70 H 98 05/06/19 19:55 98.2 F 85 17 128/75 97 Weight Weight 112.536 kg I&O: 05/05/19 05/06/19 05/07/19 06:59 06:59 06:59 Intake Total 1440 Balance 1440 Result Diagrams: 05/06/19 06:40 05/06/19 06:40 Phys Exam - Physical Examination Constitutional: NAD HEENT: moist MMs, sclera anicteric Neck: supple, full ROM Respiratory: no wheezing, clear to auscultation bilateral Cardiovascular: RRR, no significant murmur Gastrointestinal: soft, non-tender Musculoskeletal: no edema, pulses present Neurological: non-focal, moves all 4 limbs Psychiatric: normal affect, A&O x 3 Skin: no rash, normal turgor Dx/Plan (1) Hypothyroid Code(s): E03.9 - HYPOTHYROIDISM, UNSPECIFIED Status: Chronic (2) Chest pain in adult Code(s): R07.9 - CHEST PAIN, UNSPECIFIED Status: Acute (3) HTN (hypertension) Code(s): I10 - ESSENTIAL (PRIMARY) HYPERTENSION Status: Chronic Qualifiers: Hypertension type: essential hypertension Qualified Code(s): I10 - Essential (primary) hypertension (4) History of anxiety Code(s): Z86.59 - PERSONAL HISTORY OF OTHER MENTAL AND BEHAVIORAL DISORDERS Status: Chronic (5) History of depression Code(s): Z86.59 - PERSONAL HISTORY OF OTHER MENTAL AND BEHAVIORAL DISORDERS Status: Chronic - Plan Plan: Patient is a 53F with PMHX of HTN, hypothyroidism, anxiety, and depression that is admitted with atypical chest pain #Atypical Chest Pain -L-sided chest pain, achy/sharp/pressure at times; occurs when patient is at rest and with movement -EKG: NSR -trop neg x3 -CXR: neg -Echo 2017: EF 50-55%, trace tricuspid regurg -nitrostat prn -Heart score of 2, for HTN and age -TSH: 2.17 -FLP: trig 62, total chol 182, LDL 95, HDL 75 -A1C: 5.2 -treadmill stress yesterday negative #HTN -well controlled in ED -continue home meds #Anxiety/Depression -continue home meds -discussed therapy with patient, patient agreeable with pursuing this outpatient DVT ppx: lovenox GI ppx: Home Nexium Dispo: tele obs for atypical chest pain workup, cardiac stress test negative; chest pain likely msk/anxiety related, will d/c today with f/u outpatient Code: Full PCP: Mar
[2019-05-07 05:17] LABS: Hemoglobin A1c 5.2 % (4.0-6.0)
[2019-05-07 05:24] LABS: Cardiac Risk 2.4 (Less than 4.5)
[2019-05-07] MEDS ORDERED: Thyroid 60 MG TAB PO SCH ×2 (06:00→09:00)
[2019-05-07] MEDS ORDERED: Losartan 25 MG TAB PO SCH ×2 (09:00)
[2019-05-07] MEDS ORDERED: Aspirin 325 mg Enteric Coated Tablet PO SCH (09:00)
[2019-05-07] MEDS ORDERED: Aspirin 81 mg Enteric Coated Tablet PO SCH (09:00)
[2019-05-07] MEDS ORDERED: Bupropion 150 MG XL TAB PO SCH ×2 (09:00)
[2019-05-07] MEDS ORDERED: Enoxaparin Sodium 40 MG/0.4 ML SYRINGE SC SCH (09:00)
[2019-05-07] MEDS ORDERED: Hydrochlorothiazide 25 MG TAB PO SCH ×2 (09:00)
--- NOTE | 2019-05-07 11:34 | PRG ---
DATE OF SERVICE: 05/07/2019 I have reviewed the note of Dr. Amelia Monroy and agreed with her assessment and plan. Ms. Ansari is a pleasant 53-year-old lady, who was admitted with some atypical chest pain. Her heart score was 2. Her troponins were low at 0.028 to less than 0.010. Her lipids reveal a triglyceride of 62, cholesterol 182, LDL of 95, and HDL of 75. She underwent a stress test that was negative for coronary ischemia and was subsequently discharged, which what appears to be musculoskeletal chest wall pain. We explained this to her on discharge and she seemed satisfied with her care and as stated subsequently discharged. Job ID: [id number]
[2019-05-07 11:45] VITALS: BP 143/78; TEMP 98.2
--- NOTE | 2019-05-08 13:04 | DIS ---
DATE OF ADMISSION: 05/06/2019 DATE OF DISCHARGE: 05/07/2019 ADMITTING RESIDENT: Amelia Monroy MD. ADMITTING ATTENDING: Juanpablo Alvarez MD. DISCHARGE RESIDENT: Amelia Monroy MD. DISCHARGE ATTENDING: Brent Eagle MD CONSULTS: None. PROCEDURES: Treadmill stress test: Negative treadmill stress test. IMAGING: Chest x-ray: No evidence of acute cardiopulmonary disease. PRIMARY DIAGNOSIS: Atypical chest pain. SECONDARY DIAGNOSES: Hypertension, anxiety, depression. DISCHARGE MEDICATIONS: 1. 81 mg aspirin p.o. daily. 2. 450 mg bupropion p.o. daily. 3. 20 mg Nexium p.o. daily. 4. 25 mg of hydrochlorothiazide p.o. daily. 5. 100 mg losartan p.o. daily. 6. 50 mg Zoloft p.o. at bedtime. 7. 15 mg temazepam p.o. at bedtime. 8. 60 mg [place] Thyroid p.o. daily. Discontinued medications: 1. Lovenox. 2. Nitrostat. 3. Zofran p.r.n. 4. Protonix 40 mg daily. 5. 650 mg acetaminophen p.o. q.4 hours p.r.n. HISTORY OF PRESENT ILLNESS AND HOSPITAL COURSE: The patient is a 53-year-old female with a past medical history of hypertension , anxiety, depression, hypothyroidism who presented to the ED with atypical chest pain. She reported that the pain began the day before she presented to the ED with left-sided chest pain that was achy and sharp in character. She noted that the pain changed when she laid down at night to more of a pressure sensation, and then the pain recurred and was achy on the way to the ED but noted new onset of left sided pain that radiated down the left arm as well on the day of admission. The patient had reported that she had been under quite a bit of stress for the last 2 weeks because her son had 2 weeks ago. She had never had chest pain like this before and though she does have a history of stomach problems, she denies any history of GERD and reports that the pain she feels is not similar to the pain she gets for stomach problems. The patient was admitted for atypical chest pain with a HEART score of 2 with hypertension and age. Her EKG showed normal sinus rhythm, her troponin was negative x3, and her chest x-ray was negative. We did risk stratify her and found to have her TSH within normal limits at 2.17 and triglyceride at 52, total cholesterol 182, LDL 95, HDL 75, and hemoglobin A1c 5.2. She was put on a treadmill stress test that resulted negative. She was monitored on telemetry overnight and remained in normal sinus rhythm. Her anxiety, depression, hypothyroid, and hypertension medications were continued throughout the hospitalization. There was a discussion that occurred with the patient that her pain was most likely musculoskeletal, as the pain was reproducible with firm palpation in that area. There also may be an anxiety and depression component to her pain due to the recent of her son. Patient was agreeable with following up with her pcp for a therapy referral outpatient. DISPOSITION: Stable. DISCHARGE INSTRUCTIONS: 1. Location: Home. 2. Diet: Heart healthy. 3. Activity: As tolerated. 4. Follow up with PCP, Dr. Manuel in 7 days. Job ID: [id number] MTDD
== END 2019-05-07 12:35 | disposition home or self-care (01) ==
LOC: ERS 06:28 → ERHOLD 09:05 → 2SW 13:32
PROVIDERS: ADMIT Family Medicine; ATTEND Neuromusculoskeletal Medicine & OMM
DX: R07.89 Other chest pain (principal); I10 Essential (primary) hypertension; E03.9 Hypothyroidism, unspecified; F41.9 Anxiety disorder, unspecified; F32.9 Major depressive disorder, single episode, unspecified; Z87.891 Personal history of nicotine dependence; Z79.82 Long term (current) use of aspirin; Z79.899 Other long term (current) drug therapy; Z91.040 Latex allergy status; Z91.048 Other nonmedicinal substance allergy status
CPT/HCPCS: 36415; 71046; 80053; 80061; 83036; 84443; 84484; 85025; 93005; 93017; 96372; G0378; J1650

== ENCOUNTER 2019-12-28 09:34 | Emergency (ER) | payer BC ==
[2019-12-28 10:40] LABS: Bilirubin Negative (Negative); Blood, Urine Negative (Negative); Clarity Clear (Clear); Glucose, Urine (Dipstick) Normal (Negative); Ketone, Urine Negative (Negative); Leukocyte Negative Leu/uL (Negative); Nitrite Negative (Negative); Protein, Urine (Dipstick) Negative (Neg-Trace); Specific Gravity, Urine 1.013 (1.002-1.036); Urobilinogen Normal mg/dL (Less than 2)
[2019-12-28 10:49] LABS: #Basophils 0.1 thou/uL (0.0-0.2); #Eosinphils 0.7 thou/uL (0.0-0.7); #Lymphocytes 1.5 thou/uL (1.20-3.40); #Monocytes 0.4 thou/uL (0.11-0.59); #Neutrophils 4.9 thou/uL (1.40-6.50); %Basophils 1.1 % (0.0-1.0); %Eosinophils 9.4 % (0.0-10.0); %Lymphocytes 19.9 % (21.0-51.0); %Monocytes 5.1 % (0.0-10.0); %Neutrophils 64.5 % (42.0-75.0); Hemoglobin 14.4 g/dL (12.0-16.0); Mean Corpuscular HGB CONC 33.6 g/dL (32.0-36.0); Mean Platelet Volume 8.2 fL (7.4-10.4); Platelet Count 176 thou/uL (130-400); RBC Distribution Width 11.7 % (11.5-14.5); Red Blood Cell (RBC) Count 4.22 mill/uL (4.20-5.40); White Blood Cell (WBC) Count 7.6 thou/uL (4.8-10.8)
[2019-12-28 11:20] LABS: ALT (SGPT) 30 U/L (8-55); AST (SGOT) 31 U/L (5-34); Albumin 4.3 g/dL (3.5-5.0); Alkaline Phosphatase 99 U/L (40-110); Anion Gap 15 mmol/L (10-20); BUN (Urea Nitrogen) 17 mg/dL (9.8-20.1); Bilirubin, Total 0.5 mg/dL (0.2-1.2); Calc. Creatinine Clearance 0 mL/min (70-130); Calcium 9.1 mg/dL (7.8-10.44); Carbon Dioxide 26 mmol/L (22-29); Chloride 101 mmol/L (98-107); Estimated GFR-MDRD 72; Globulin 2.9 g/dL (2.4-3.5); Glucose 110 mg/dL (70-105); Potassium 3.9 mmol/L (3.5-5.1); Protein, Total 7.2 g/dL (6.0-8.3); Sodium 138 mmol/L (136-145)
[2019-12-28] MEDS ORDERED: Ondansetron PF 4 MG/2 ML Vial ONE (11:24)
--- NOTE | 2019-12-28 13:04 | CT ---
CT abdomen and pelvis with IV and oral contrast HISTORY: Lower abdomen pain. COMPARISON: 12/14/2017. FINDINGS: The lung bases are clear. Postoperative changes at the GE junction. Small hiatal hernia wit h oral contrast in the distal esophagus. Dystrophic calcification just inferior to the pancreatic body is stable. Tiny gas-filled diverticulum projects medially from the second portion of the duodenum. No evidence of bowel obstruction or inflammation. A 1.2 cm cyst at the posterior aspect of the right kidney is stable. There is a 0.4 cm oval calcification within a nondilated calyx at the inferior pole right kidney. Minimal distention of the left renal collecting system and proximal ureter with gradual transition to decompressed distal ureter. No stone evident. Urinary bladder is unremarkable. Small irregular pocket of gas within the right flank subcutaneous tissues likely related to recent me dication injection. There are degenerative changes throughout the lumbar spine. Left pars interarticularis defect at the L5 level. Alignment is maintained. IMPRESSION : No acute cause for lower abdomen pain evident. Small hiatal hernia with gastroesophageal reflux. Nonobstructing 4 mm right renal calculus. Left unilateral spondylolysis at the L5 level without spondylolisthesis. Other incidental-type findings as detailed above.
[2019-12-28] MEDS ORDERED: Iopamidol-370 76% 500 ML 1 ML ONE (14:22)
[2019-12-28] MEDS ORDERED: Iopamidol 370 76% 50 ML VIAL FS ONE (14:22)
== END 2019-12-28 13:40 | disposition home or self-care (01) ==
LOC: ERS 09:34
DX: R10.32 Left lower quadrant pain (principal); R10.31 Right lower quadrant pain; F41.9 Anxiety disorder, unspecified; F32.9 Major depressive disorder, single episode, unspecified; I10 Essential (primary) hypertension; Z79.899 Other long term (current) drug therapy
CPT/HCPCS: 36415; 74177; 80053; 81003; 83690; 85025; 87045; 87046; 87324; 87328; 87329; 87427; 87449; 96361; 96372; 96374; J0500; J2405; Q9967

== ENCOUNTER 2020-10-09 10:23 | Day surgery (SDC) | payer BC ==
[~2020-10-09 10:23] MED LIST changes: -Iopamidol 370 76% 50 ML VIAL FS ONE; +Iopamidol-370 76% 500 ML 1 ML ONE
[2020-10-09 10:55] LABS: Bilirubin Negative (Negative); Blood, Urine Negative (Negative); Clarity Clear (Clear); Glucose, Urine (Dipstick) Normal (Negative); Ketone, Urine Negative (Negative); Leukocyte Negative Leu/uL (Negative); Nitrite Negative (Negative); Protein, Urine (Dipstick) Negative (Neg-Trace); Specific Gravity, Urine 1.018 (1.002-1.036); Urobilinogen Normal mg/dL (Less than 2)
[2020-10-09 11:08] LABS: #Eosinphils 0.2 thou/uL (0.0-0.7); #Lymphocytes 1.5 thou/uL (1.20-3.40); #Monocytes 0.7 thou/uL (0.11-0.59); #Neutrophils 7.8 thou/uL (1.40-6.50); %Basophils 0.4 % (0.0-1.0); %Eosinophils 1.9 % (0.0-10.0); %Neutrophils 75.7 % (42.0-75.0); Hemoglobin 13.8 g/dL (12.0-16.0); Mean Corpuscular HGB CONC 33.3 g/dL (32.0-36.0); Mean Corpuscular Hemoglobin 33.9 pg (27.0-31.0); Mean Platelet Volume 7.8 fL (7.4-10.4); Platelet Count 156 thou/uL (130-400); RBC Distribution Width 12.6 % (11.5-14.5); Red Blood Cell (RBC) Count 4.07 mill/uL (4.20-5.40); White Blood Cell (WBC) Count 10.3 thou/uL (4.8-10.8)
[2020-10-09] MEDS ORDERED: Morphine 4 MG/ML VIAL ONE (11:33)
[2020-10-09] MEDS ORDERED: Ondansetron PF 4 MG/2 ML Vial ONE ×2 (11:33→14:47)
[2020-10-09] MEDS ORDERED: Piperacillin/Tazobactam 3.375 GM VIAL ONE (12:12)
[2020-10-09 12:36] LABS: ALT (SGPT) 36 U/L (8-55); AST (SGOT) 28 U/L (5-34); Albumin 3.7 g/dL (3.5-5.0); Alkaline Phosphatase 93 U/L (40-110); Anion Gap 12 mmol/L (10-20); BUN (Urea Nitrogen) 12 mg/dL (9.8-20.1); Bilirubin, Total 0.5 mg/dL (0.2-1.2); Calc. Creatinine Clearance 0 mL/min (70-130); Calcium 8.3 mg/dL (7.8-10.44); Carbon Dioxide 27 mmol/L (22-29); Chloride 102 mmol/L (98-107); Globulin 2.5 g/dL (2.4-3.5); Glucose 108 mg/dL (70-105); Lipase 7 U/L (8-78); Potassium 3.9 mmol/L (3.5-5.1); Protein, Total 6.2 g/dL (6.0-8.3); Sodium 137 mmol/L (136-145)
[2020-10-09 13:33] LABS: SARS-CoV-2 NAA Rapid Test Not Detected (NotDetected)
[2020-10-09] MEDS ORDERED: Fentanyl 100 MCG/2 ML VIAL ONE ×2 (13:55→16:28)
[2020-10-09] MEDS ORDERED: Bupivacaine 0.25% HCL 30 ML VIAL ONE (14:00)
[2020-10-09] MEDS ORDERED: Lidocaine 1% w/Epinephrine 1:100K 20 ML VIAL ONE (14:00)
[2020-10-09] MEDS ORDERED: PROPOFOL 200 MG/20 ML VIAL ONE (14:47)
[2020-10-09] MEDS ORDERED: Glycopyrrolate 0.2 MG/ML 5 ML SYRINGE ONE (14:47)
[2020-10-09] MEDS ORDERED: ePHEDrine Sulfate 50 MG/10 ML VIAL ONE (14:47)
[2020-10-09] MEDS ORDERED: Ketorolac Tromethamine 30 MG/ML VIAL ONE (14:47)
[2020-10-09] MEDS ORDERED: Rocuronium Bromide 10 MG/ML (10ML VIAL) ONE (14:47)
[2020-10-09] MEDS ORDERED: Dexamethasone 20 MG/5 ML VIAL ONE (14:47)
[2020-10-09] MEDS ORDERED: HYDROmorphone 0.5 MG/0.5 ML SYRINGE ONE (15:06)
[2020-10-09] MEDS ORDERED: Promethazine HCl 25 MG/ML VIAL SLOW IVP PRN (15:22)
[2020-10-09] MEDS ORDERED: Ondansetron HCl/PF 4 MG/2 ML Vial IVP PRN (15:22)
[2020-10-09] MEDS ORDERED: HYDROmorphone 2 MG/ML VIAL SLOW IVP PRN (15:22)
[2020-10-09] MEDS ORDERED: HYDROcodone/Acetaminophen 5/325 mg Tablet ONE (17:41)
== END 2020-10-09 18:30 | disposition home or self-care (01) ==
LOC: ERS 10:23 → SDC 13:25
PROVIDERS: ATTEND Surgery
PROC: 0DTJ4ZZ Resection of Appendix, Percutaneous Endoscopic Approach (ICD-10-PCS; principal; 2020-10-09)
DX: K35.80 Unspecified acute appendicitis (principal); K21.9 Gastro-esophageal reflux disease without esophagitis; I10 Essential (primary) hypertension; E66.01 Morbid (severe) obesity due to excess calories; N20.0 Calculus of kidney; N28.1 Cyst of kidney, acquired; K44.9 Diaphragmatic hernia without obstruction or gangrene; K76.0 Fatty (change of) liver, not elsewhere classified; Z68.42 Body mass index [BMI] 45.0-49.9, adult; Z79.899 Other long term (current) drug therapy; Z91.040 Latex allergy status; Z91.048 Other nonmedicinal substance allergy status
CPT/HCPCS: 36415; 74177; 80053; 81003; 83690; 84484; 85025; 87040; 88304; 93005; 96365; 96375; J1100; J1170; J1885; J2270; J2405; J2543; J2704; J3010; Q9967; S0020; U0002; U0005

== ENCOUNTER 2022-11-03 06:30 | Observation (INO) | payer BC ==
[2022-10-29 14:18] VITALS: BMI 41.7
[2022-11-03] MEDS ORDERED: Ropivacaine 0.5% HCl/PF (150 MG/30 ML VIAL) ONE (07:25)
[2022-11-03] MEDS ORDERED: Midazolam HCl 2 mg/2 ml Vial ONE ×2 (07:25→08:06)
[2022-11-03] MEDS ORDERED: fentaNYL 50 mcg/mL 1 mL Vial ONE ×4 (07:25→13:04)
[2022-11-03] MEDS ORDERED: Bupivacaine PF 0.5% 30 ML VIAL ONE (07:28)
[2022-11-03] MEDS ORDERED: Sodium Chloride 0.9% 100 ML ONE ×2 (07:43→08:29)
[2022-11-03] MEDS ORDERED: Tranexamic Acid 1,000 MG/10 ML VIAL ONE ×2 (07:43→12:26)
[2022-11-03] MEDS ORDERED: Vancomycin (BATCH) 1.5 GRAM/300 ML BAG ONE (07:44)
[2022-11-03] MEDS ORDERED: methylPREDNISolone Acetate 40 mg/ml Vial ONE (08:00)
[2022-11-03] MEDS ORDERED: Lidocaine 1% (PF) 30 ML VIAL ONE (08:00)
[2022-11-03] MEDS ORDERED: Fentanyl 250 MCG/5 ML VIAL ONE (08:06)
[2022-11-03] MEDS ORDERED: CEFAZOLIN 2 GM VIAL ONE (08:29)
[2022-11-03] MEDS ORDERED: HYDROcodone/Acetaminophen 10/325 mg Tablet PO PRN ×3 (08:45→12:23)
[2022-11-03] MEDS ORDERED: Zolpidem Tartrate 5 MG TAB PO PRN ×3 (08:45→12:21)
[2022-11-03] MEDS ORDERED: traMADol HCl 50 MG TAB PO PRN ×2 (08:45→12:23)
[2022-11-03] MEDS ORDERED: Ondansetron PF 4 MG/2 ML Vial IVP PRN ×3 (08:45→12:21)
[2022-11-03] MEDS ORDERED: Ropivacaine 0.2% 550 ML 550 ML NERVE BLCK SCH (08:45)
[2022-11-03] MEDS ORDERED: Promethazine HCl 25 MG/ML VIAL IM PRN ×3 (08:45→12:21)
[2022-11-03] MEDS ORDERED: PROPOFOL 200 MG/20 ML VIAL ONE (09:32)
[2022-11-03] MEDS ORDERED: Ondansetron PF 4 MG/2 ML Vial ONE (09:32)
[2022-11-03] MEDS ORDERED: Ketorolac Tromethamine 30 MG/ML VIAL ONE (09:32)
[2022-11-03] MEDS ORDERED: Lidocaine 1% PF 5 ML VIAL ONE (09:32)
[2022-11-03] MEDS ORDERED: Rocuronium Bromide 10 MG/ML (10ML VIAL) ONE (09:32)
[2022-11-03] MEDS ORDERED: Dexamethasone 20 MG/5 ML VIAL ONE (09:32)
[2022-11-03] MEDS ORDERED: SUGAMMADEX SODIUM 200 MG/2 ML VIAL ONE (10:49)
[2022-11-03] MEDS ORDERED: diphenhydrAMINE 25 MG CAP PO PRN ×2 (12:00→12:05)
[2022-11-03] MEDS ORDERED: Tranexamic Acid 1,000 MG in Sodium Chloride 0.9% 100 ML IVPB SCH ×2 (12:00→12:15)
[2022-11-03] MEDS ORDERED: Acetaminophen 325 MG TAB PO PRN ×2 (12:05→12:09)
[2022-11-03] MEDS ORDERED: Vancomycin HCl 1.5 GM in Sodium Chloride 0.9% 250 ML 300 ML IVPB SCH (12:15)
[2022-11-03] MEDS ORDERED: Sodium Chloride 0.9% 1,000 ML IV SCH (12:15)
[2022-11-03] MEDS ORDERED: CEFAZOLIN 2 GM in Sodium Chloride 0.9% 100 ML IVPB SCH (12:15)
[2022-11-03] MEDS ORDERED: fentaNYL 50 mcg/mL 1 mL Vial SLOW IVP PRN (12:23)
[2022-11-03] MEDS: Ketorolac Tromethamine 30 MG/ML VIAL IVP SCH ×2 (12:26→17:43)
[2022-11-03] MEDS: Sodium Chloride 0.9% 1,000 ML IV SCH (12:27)
[2022-11-03] MEDS ORDERED: Ketorolac Tromethamine 30 MG/ML VIAL IVP SCH (14:00)
[2022-11-03] MEDS: HYDROcodone/Acetaminophen 10/325 mg Tablet PO PRN ×3 (14:13→22:13)
[2022-11-03] MEDS: fentaNYL 50 mcg/mL 1 mL Vial SLOW IVP PRN (14:13)
[2022-11-03] MEDS: CEFAZOLIN 2 GM in Sodium Chloride 0.9% 100 ML IVPB SCH (17:43)
[2022-11-03] MEDS: Aspirin 81 mg Enteric Coated Tablet PO SCH (19:58)
[2022-11-03] MEDS: Pramipexole Di-HCl 0.125 MG TAB PO SCH (19:58)
[2022-11-03] MEDS: Pregabalin 75 MG CAP PO SCH (19:58)
[2022-11-03] MEDS: Senokot S 8.6-50 MG TAB PO SCH (19:59)
[2022-11-03] MEDS: Ferrous Gluconate 324 MG TAB PO SCH (19:59)
[2022-11-03] MEDS: Sertraline 100 MG TAB PO SCH (19:59)
[2022-11-03] MEDS: traZODone HCl 50 MG TAB PO SCH (19:59)
[2022-11-03] MEDS ORDERED: Vancomycin 1.5 GRAM/300 ML BAG 1.5 GM in Premix Bag 1 BAG IVPB SCH (20:00)
[2022-11-03] MEDS: cloNIDine 0.2 MG TAB PO SCH (20:02)
[2022-11-03] MEDS ORDERED: Senokot S 8.6-50 MG TAB PO SCH (21:00)
[2022-11-03] MEDS ORDERED: Ferrous Gluconate 324 MG TAB PO SCH (21:00)
[2022-11-03] MEDS ORDERED: Aspirin 81 mg Enteric Coated Tablet PO SCH (21:00)
[2022-11-04] MEDS: Sodium Chloride 0.9% 1,000 ML IV SCH ×3 (00:13→17:10)
[2022-11-04] MEDS: Ketorolac Tromethamine 30 MG/ML VIAL IVP SCH ×4 (00:24→17:19)
[2022-11-04] MEDS: CEFAZOLIN 2 GM in Sodium Chloride 0.9% 100 ML IVPB SCH (01:28)
[2022-11-04] MEDS: HYDROcodone/Acetaminophen 10/325 mg Tablet PO PRN ×4 (01:41→21:03)
[2022-11-04] MEDS: Levothyroxine Sodium 75 MCG TAB PO SCH (05:30)
[2022-11-04] MEDS: fentaNYL 50 mcg/mL 1 mL Vial SLOW IVP PRN (05:32)
[2022-11-04] MEDS ORDERED: Multivitamin W/ Minerals 1 TAB PO SCH (09:00)
[2022-11-04] MEDS: Amlodipine 10 MG TAB PO SCH (09:35)
[2022-11-04] MEDS: cloNIDine 0.2 MG TAB PO SCH ×2 (09:36→20:54)
[2022-11-04] MEDS: Losartan 25 MG TAB PO SCH (09:36)
[2022-11-04] MEDS: Hydrochlorothiazide 25 MG TAB PO SCH (09:36)
[2022-11-04] MEDS: Aspirin 81 mg Enteric Coated Tablet PO SCH ×2 (09:37→20:54)
[2022-11-04] MEDS: DULoxetine 60 MG CAP PO SCH (09:38)
[2022-11-04] MEDS: Senokot S 8.6-50 MG TAB PO SCH ×2 (09:38→20:57)
[2022-11-04] MEDS: Multivitamin W/ Minerals 1 TAB PO SCH (09:38)
[2022-11-04] MEDS: Ferrous Gluconate 324 MG TAB PO SCH ×2 (09:38→20:54)
[2022-11-04] MEDS: traMADol HCl 50 MG TAB PO PRN ×2 (11:08→17:19)
[2022-11-04] MEDS ORDERED: Polyethylene Glycol 3350 17 GM Packet PO PRN (14:46)
[2022-11-04] MEDS: traZODone HCl 50 MG TAB PO SCH (20:54)
[2022-11-04] MEDS: Sertraline 100 MG TAB PO SCH (20:54)
[2022-11-04] MEDS: Pramipexole Di-HCl 0.125 MG TAB PO SCH (20:54)
[2022-11-04] MEDS: Pregabalin 75 MG CAP PO SCH (20:55)
[2022-11-05] MEDS: Ketorolac Tromethamine 30 MG/ML VIAL IVP SCH ×2 (00:11→05:19)
[2022-11-05] MEDS: Sodium Chloride 0.9% 1,000 ML IV SCH (03:12)
[2022-11-05] MEDS: HYDROcodone/Acetaminophen 10/325 mg Tablet PO PRN ×2 (05:21→09:23)
[2022-11-05] MEDS: Levothyroxine Sodium 75 MCG TAB PO SCH (05:23)
[2022-11-05 05:24] LABS: Hemoglobin 12.6 g/dL (12.0-16.0); Mean Corpuscular HGB CONC 33.2 g/dL (32.0-36.0); Mean Corpuscular Hemoglobin 35.7 pg (27.0-31.0); Mean Corpuscular Volume 107.4 fl (78.0-98.0); Mean Platelet Volume 10.5 fL (7.4-10.4); Platelet Count 178 10x3/uL (130-400); RBC Distribution Width 13.1 % (11.5-14.5); Red Blood Cell (RBC) Count 3.53 mill/uL (4.20-5.40); White Blood Cell (WBC) Count 9.4 10x3/uL (4.8-10.8)
[2022-11-05] MEDS: Senokot S 8.6-50 MG TAB PO SCH (08:40)
[2022-11-05] MEDS: cloNIDine 0.2 MG TAB PO SCH (08:40)
[2022-11-05] MEDS: Aspirin 81 mg Enteric Coated Tablet PO SCH (08:40)
[2022-11-05] MEDS: Amlodipine 10 MG TAB PO SCH (08:40)
[2022-11-05] MEDS: Ferrous Gluconate 324 MG TAB PO SCH (08:40)
[2022-11-05] MEDS: DULoxetine 60 MG CAP PO SCH (08:40)
[2022-11-05] MEDS: Multivitamin W/ Minerals 1 TAB PO SCH (08:40)
[2022-11-05] MEDS: Hydrochlorothiazide 25 MG TAB PO SCH (08:41)
[2022-11-05] MEDS: Losartan 25 MG TAB PO SCH (08:41)
[2022-11-05 08:55] VITALS: BP 105/70; TEMP 97.7
[2022-11-05] MEDS ORDERED: CeleCOXIB 100 MG CAP PO SCH (21:00)
== END 2022-11-05 11:42 | disposition home or self-care (01) ==
LOC: SDC 06:30 → SJJU 14:06
PROVIDERS: ADMIT Orthopaedic Surgery; ATTEND Orthopaedic Surgery
PROC: 0SRC0JZ Replacement of Right Knee Joint with Synthetic Substitute, Open Approach (ICD-10-PCS; principal; 2022-11-05)
PROC: 0S9D3ZZ Drainage of Left Knee Joint, Percutaneous Approach (ICD-10-PCS; 2022-11-05)
DX: M17.0 Bilateral primary osteoarthritis of knee (principal); E66.9 Obesity, unspecified; I10 Essential (primary) hypertension; E03.9 Hypothyroidism, unspecified; J45.909 Unspecified asthma, uncomplicated; Z68.41 Body mass index [BMI] 40.0-44.9, adult; Z85.3 Personal history of malignant neoplasm of breast; Z90.49 Acquired absence of other specified parts of digestive tract; Z90.89 Acquired absence of other organs; Z90.710 Acquired absence of both cervix and uterus; Z87.891 Personal history of nicotine dependence; Z88.8 Allergy status to other drugs, medicaments and biological substances; Z91.040 Latex allergy status; Z79.899 Other long term (current) drug therapy
CPT/HCPCS: 36415; 85027; 96365; 96366; 96367; 96374; 96375; 96376; A4306; C1776; G0378; J1030; J1100; J1885; J2001; J2250; J2405; J2704; J2795; J3010; J3370; J3490; S0020

== ENCOUNTER 2023-12-30 09:09 | Outpatient (CLI) | payer BC ==
[2023-12-30 10:44] LABS: #Basophils 0.04 10x3/uL (0.0-0.2); %Basophils 0.6 % (0.0-1.0); %Eosinophils 8.4 % (0.0-10.0); %Lymphocytes 36.1 % (21.0-51.0); %Monocytes 8.1 % (0.0-10.0); %Neutrophils 46.5 % (42.0-75.0); Hematocrit 38.5 % (36.0-47.0); Hemoglobin 13.1 g/dL (12.0-16.0); Mean Corpuscular Hemoglobin 35.6 pg (27.0-31.0); Mean Corpuscular Volume 104.6 fL (78.0-98.0); Mean Platelet Volume 10.4 fL (7.4-10.4); Platelet Count 201 10x3/uL (130-400); RBC Distribution Width 12.4 % (11.5-14.5); Red Blood Cell (RBC) Count 3.68 mill/uL (4.20-5.40)
[2023-12-30 11:06] LABS: Anion Gap 12 mmol/L (10-20); BUN (Urea Nitrogen) 11 mg/dL (9.8-20.1); Calc. Creatinine Clearance 0 mL/min (70-130); Calcium 9.3 mg/dL (7.8-10.44); Carbon Dioxide 30 mmol/L (22-29); Chloride 103 mmol/L (98-107); Estimated GFR 85; Glucose 109 mg/dL (70-105); Sodium 141 mmol/L (136-145)
== END 2023-12-30 09:10 | disposition home or self-care (01) ==
LOC: LABBT 09:09
PROVIDERS: ATTEND Orthopaedic Surgery
DX: Z01.818 Encounter for other preprocedural examination (principal); M17.12 Unilateral primary osteoarthritis, left knee
CPT/HCPCS: 80048; 85025; 87081; 93005; 93010